=== PATIENT | female | born 1945 | race Caucasian/White ===

== ENCOUNTER 2016-07-08 09:23 | Day surgery (SDC) | payer MEDICARE, BC ==
[~2016-07-08 09:23] MED LIST: LIDOCAINE HCL 1% MPF SOL ONE; PROPOFOL 500 MG/50 ML EMU IV ONE
[2016-07-08 09:43] VITALS: TEMP 97.7
[2016-07-08] MEDS ORDERED: GLYCOPYRROLATE 0.2 MG/ML SOL ONE (11:41)
[2016-07-08 12:07] VITALS: RESP 16
[2016-07-08 12:13] VITALS: BP 137/66
[2016-07-08 12:16] VITALS: PULSE 65; O2SAT 94
== END 2016-07-08 13:35 | disposition home or self-care (01) | DRG 951 ==
LOC: SURG 09:23
PROVIDERS: ATTEND Internal Medicine Gastroenterology
DX: Z12.11 Encounter for screening for malignant neoplasm of colon (principal); D12.3 Benign neoplasm of transverse colon; K57.30 Diverticulosis of large intestine without perforation or abscess without bleeding; K64.8 Other hemorrhoids
CPT/HCPCS: J7643; J2001; J2704

== ENCOUNTER 2017-01-29 10:13 | Day surgery (SDC) | payer MEDICARE, BC ==
[2017-01-29] MEDS ORDERED: LIDOCAINE HCL 2% MPF SOL ONE ×2 (11:16→12:03)
[2017-01-29] MEDS ORDERED: PROPOFOL 500 MG/50 ML EMU IV ONE (11:40)
[2017-01-29] MEDS ORDERED: KETOROLAC TROMETHAMINE 30 MG/ML SOL ONE (11:40)
[2017-01-29] MEDS ORDERED: FENTANYL 100MCG/2ML SOL ONE (11:41)
[2017-01-29] MEDS ORDERED: MIDAZOLAM 2 MG/2 ML SOL ONE (11:41)
[2017-01-29] MEDS: BUPIVACAINE HCL 0.5% MPF 10 ML SOL ONE ×2 (12:30→12:40)
[2017-01-29 13:29] VITALS: RESP 16
[2017-01-29 14:15] VITALS: BP 147/75; PULSE 58; TEMP 96.8; O2SAT 94
== END 2017-01-29 14:30 | disposition home or self-care (01) | DRG 74 ==
LOC: SURG 10:13
PROVIDERS: ATTEND Orthopaedic Surgery
DX: G56.03 Carpal tunnel syndrome, bilateral upper limbs (principal)
CPT/HCPCS: J1885; J2250; J3010; A6402; J2704